=== PATIENT | male | born 1985 | race Two or more races ===

== ENCOUNTER 2018-09-05 15:14 | Emergency (ER) | payer BC ==
[~2018-09-05] VITALS: Ht 172.7 cm; Wt 72.1 kg
[2018-09-05 15:20] VITALS: Ht 172.7 cm; Wt 72.1 kg
[2018-09-05 17:59] VITALS: BP 117/74
== END 2018-09-05 17:59 | disposition home or self-care (01) ==
LOC: ED 15:14
DX: R51 Headache (principal); R11.0 Nausea
CPT/HCPCS: J1885; J2765